=== PATIENT | male | born 1970 | race Caucasian/White ===

== ENCOUNTER 2017-03-23 14:42 | Outpatient (CLI) | payer BC ==
--- NOTE | 2017-03-23 16:37 | ULT ---
EXAM: THYROID ULTRASOUND 03/23/17 HISTORY: Familial history of thyroid cancer. COMPARISON: None. TECHNIQUE: Sagittal and transverse imaging of the thyroid gland is performed. FINDINGS: Thyroid isthmus measures 0.3 cm. Right thyroid lobe measures 4.6 x 1.8 x 2.1 cm. Left thyroid lobe m easures 4.5 x 2.1 x 1.7 cm. There is a 0.2 cm hypoechoic focus at the junction of the right thyroid lobe and isthmus. IMPRESSION: Unremarkable thyroid ultrasound. No significant solid or cystic mass. POS: [facility]
== END 2017-03-23 14:43 | disposition home or self-care (01) ==
LOC: SCSULT 14:42
PROVIDERS: ATTEND Family Medicine
DX: Z80.8 Family history of malignant neoplasm of other organs or systems (principal)
CPT/HCPCS: 76536